=== PATIENT | female | born 1955 | race Hispanic/Latino ===

== ENCOUNTER 2016-08-25 14:26 | Emergency (ER) | payer OTHER ==
[2016-08-25 14:26] VITALS: BMI 27.3
[2016-08-25 14:45] VITALS: O2SAT 100
--- NOTE | 2016-08-25 15:26 | ED PDOC ---
HPI: Chest Pain Time Seen by Provider: 08/25/16 15:12 Chief Complaint (Nursing): Chest Pain Chief Complaint (Provider): Right sided chest pain x 4 days History Per: Patient History/Exam Limitations: no limitations Onset/Duration Of Symptoms: Days Current Symptoms Are (Timing): Still Present Severity: Moderate Pain Scale Rating Of: 5 Front/Back of Body, Lg (Color): 1 - Pain Additional Complaint(s): Pt reports 3-4 dyas of right sided chest pain. PT states yesterday she felt it radiated down the right arm. Pt states today she feels like it radiates towards the center of te chest. PT states yesterday she took zantac and today a baby aspirin but it did not help. No fever/chills. No cough. Pt states she feels it is work with movement and deep breathing. No calf pain. No recent travel. Pt states she does smoke. Past Medical History Reviewed: Historical Data, Nursing Documentation, Vital Signs Vital Signs: Last Vital Signs Temp 98.1 F 08/25/16 19:27 Pulse 72 08/25/16 19:27 Resp 16 08/25/16 19:27 BP 134/77 08/25/16 19:28 Pulse Ox 100 08/25/16 19:27 - Medical History PMH: Back Problems, Hypercholesterolemia, Hypothyroidism, Osteoporosis - Surgical History Surgical History: Tonsillectomy - Family History Family History: States: No Known Family Hx - Living Arrangements Living Arrangements: With Family - Social History Current smoker - smoking cessation education provided: No - Home Medications Home Medications: Ambulatory Orders Medication Instructions Recorded Acetaminophen with Codeine 1 tab PO Q6 PRN #20 tab 02/05/14 [Tylenol with Codeine No. 3 300 mg-30 mg] Tizanidine Hydrochloride 4 mg PO Q6 PRN #20 tab 02/05/14 [Tizanidine HCl] Atropine Sulf/Hyoscyamine [place] 1 tab PO Q8 #10 tab 08/11/14 [] Cyclobenzaprine [Flexeril] 5 mg PO Q8H #20 tab 08/25/16 - Allergies Allergies/Adverse Reactions: Allergies Allergy/AdvReac Type Severity Reaction Status Date / Time No Known Allergies Allergy Verified 08/25/16 14:43 Review of Systems ROS Statement: Except As Marked, All Systems Reviewed And Found Negative Physical Exam - Reviewed Nursing Documentation Reviewed: Yes Vital Signs Reviewed: Yes - Physical Exam Appears: Positive for: Well, Non-toxic, No Acute Distress Head Exam: Positive for: ATRAUMATIC, NORMAL INSPECTION, NORMOCEPHALIC Skin: Positive for: Normal Color, Warm, DRY Eye Exam: Positive for: Normal appearance ENT: Positive for: Normal ENT Inspection Neck: Positive for: Normal, Painless ROM Cardiovascular/Chest: Positive for: Regular Rate, Rhythm, Chest Non Tender ( Right side) Respiratory: Positive for: Normal Breath Sounds. Negative for: Accessory Muscle Use Gastrointestinal/Abdominal: Positive for: Normal Exam, Bowel Sounds, Soft Back: Positive for: Normal Inspection Extremity: Positive for: Normal ROM Neurologic/Psych: Positive for: Alert, Oriented - Laboratory Results Result Diagrams: 08/25/16 17:47 08/25/16 17:47 - ECG O2 Sat by Pulse Oximetry: 100 Pulse Ox Interpretation: Normal Disposition - Clinical Impression Clinical Impression: Non-cardiac chest pain - Patient ED Disposition Is Patient to be Admitted: No Counseled Patient/Family Regarding: Diagnosis, Need For Followup, Rx Given - Disposition Referrals: [facility] [Outside] Disposition: Routine/Home Disposition Time: 19:49 Condition: STABLE Prescriptions: Cyclobenzaprine [Flexeril] 5 mg PO Q8H #20 tab Instructions: Musculoskeletal Pain (ED)
[2016-08-25 17:53] LABS: HEMATOCRIT 38.1 % (34.0-47.0); MEAN CELL VOLUME 93.1 fl (81.0-99.0); MEAN CORPUSCULAR HEMOGLOBIN 30.8 pg (27.0-31.0); MEAN CORPUSCULAR HGB CONC 33.1 g/dL (33.0-37.0); RED CELL DISTRIBUTION WIDTH 14.3 % (11.5-14.5); WHITE BLOOD COUNT 7.2 K/uL (4.8-10.8)
[2016-08-25 18:06] LABS: ALB/GLOB RATIO 1.3 (1.0-2.1); ALKALINE PHOSPHATASE 57 U/L (38-126); ALT/SGPT 25 U/L (9-52); AST/SGOT 22 U/L (14-36); BILIRUBIN,TOTAL 0.3 mg/dl (0.2-1.3); BLOOD UREA NITROGEN 12 mg/dl (7-17); CALCIUM 9.1 mg/dL (8.4-10.2); CARBON DIOXIDE 27 mmol/L (22-30); CHLORIDE 102 mmol/L (98-107); GFR AFRICAN-AMERICAN > 60; GLUCOSE,RANDOM 88 mg/dL (65-105); POTASSIUM 4.1 MMOL/L (3.6-5.0); SODIUM 140 mmol/l (132-148); TOTAL PROTEIN 6.8 G/DL (6.3-8.2)
[2016-08-25] MEDS ORDERED: Naproxen 500 MG TAB PO STA (18:45)
[2016-08-25] MEDS ORDERED: Naproxen 500 MG TAB PO ONE (19:16)
[2016-08-25 19:27] VITALS: PULSE 72; RESP 16; TEMP 98.1
[2016-08-25 19:28] VITALS: BP 134/77
--- NOTE | 2016-08-26 09:57 | RAD ---
HISTORY: chest pain, right sided COMPARISON: 08/11/2014 FINDINGS: LUNGS: The lungs are clear. PLEURA: No significant pleural effusion identified, no pneumothorax apparent. CARDIOVASCULAR: Normal. OSSEOUS STRUCTURES: No significant abnormalities. VISUALIZED UPPER ABDOMEN: Normal. OTHER FINDINGS: None. IMPRESSION: No active pulmonary disease.
--- NOTE | 2016-08-26 20:12 | CARD ---
APPROVED REPORT EKG Measurement Heart [id number] <Conclusion> Normal sinus rhythm Normal ECG
== END 2016-08-25 20:05 | disposition home or self-care (01) ==
LOC: H.ER 14:26
DX: R07.9 Chest pain, unspecified (principal)

== ENCOUNTER 2017-01-29 08:09 | Day surgery (SDC) | payer OTHER ==
[2017-01-29] MEDS ORDERED: Lactated Ringer's 500 ML IV ONE (10:29)
[2017-01-29] MEDS ORDERED: Propofol 10 mg/ml Inj (20 ML) ONE (11:59)
[2017-01-29 12:18] VITALS: TEMP 98
[2017-01-29 12:48] VITALS: BP 127/69; PULSE 85; RESP 13; O2SAT 100
== END 2017-01-29 12:47 | disposition home or self-care (01) ==
LOC: H.ENDO 08:09
PROVIDERS: ATTEND Internal Medicine Gastroenterology
DX: Z12.11 Encounter for screening for malignant neoplasm of colon (principal); K64.0 First degree hemorrhoids
CPT/HCPCS: 45378; J2001; J2704; J7120

== ENCOUNTER 2017-06-05 10:59 | Emergency (ER) | payer OTHER ==
[2017-06-05 11:00] VITALS: BMI 27.3
[2017-06-05 11:21] VITALS: PULSE 84; RESP 16; TEMP 97.7; O2SAT 100
[2017-06-05 11:45] VITALS: BP 128/86
[2017-06-05 12:01] LABS: BASO # 0.1 K/uL (0.0-0.2); BASO % 1.1 % (0.0-2.0); EOS # 0.4 K/uL (0.0-0.7); EOS % 4.9 % (0.0-4.0); HEMOGLOBIN 12.8 g/dL (12.0-16.0); LYMPH % 24.9 % (20.0-40.0); MEAN CELL VOLUME 92.4 fl (81.0-99.0); MEAN CORPUSCULAR HEMOGLOBIN 30.3 pg (27.0-31.0); MEAN CORPUSCULAR HGB CONC 32.8 g/dL (33.0-37.0); MEAN PLATELET VOLUME 7.4 fl (7.2-11.7); MONO # 0.5 K/uL (0.0-0.8); NEUT # 5.2 K/uL (1.8-7.0); NEUT % 63.1 % (50.0-75.0); NRBC % 0.1 % (0.0-0.0); RBC 4.22 Mil/uL (3.80-5.20); RED CELL DISTRIBUTION WIDTH 13.9 % (11.5-14.5); WHITE BLOOD COUNT 8.2 K/uL (4.8-10.8)
[2017-06-05 12:11] LABS: BLOOD UREA NITROGEN 17 mg/dl (7-17); CALCIUM 8.9 mg/dL (8.4-10.2); GFR AFRICAN-AMERICAN > 60; GFR NON-AFRICAN AMERICAN > 60
--- NOTE | 2017-06-05 12:50 | ED PDOC ---
HPI: Chest Pain Time Seen by Provider: 06/05/17 11:20 Chief Complaint (Nursing): Chest Pain Additional Complaint(s): 62 year old female with a past medical history of chronic back and leg pain, osteoporosis, and thyroid disease who presents to the emergency department with a complaint of a substernal chest pain with occasional radiation to the left shoulder x1 week.States pain started after he reached for something behind the couch dropped by foster child. Reports he felt popping sensation and had pain since. Patient says pain is constant and worsens with movement and deep breathing. Denies shortness of breath, nausea, vomiting, sweats, fever, or chills. Past Medical History Reviewed: Historical Data, Nursing Documentation, Vital Signs Vital Signs: Last Vital Signs Temp 97.7 F 06/05/17 11:17 Pulse 84 06/05/17 11:17 Resp 16 06/05/17 11:17 BP 128/86 06/05/17 11:17 Pulse Ox 100 06/05/17 13:28 - Medical History PMH: Arthritis, Back Problems, Hypercholesterolemia, Hypothyroidism Denies: Chronic Kidney Disease - Surgical History Surgical History: Tonsillectomy - Family History Family History: States: No Known Family Hx - Home Medications Home Medications: Ambulatory Orders Medication Instructions Recorded Atorvastatin [Lipitor] 20 mg PO DAILY 01/29/17 Gabapentin [Neurontin] 600 mg PO DAILY 01/29/17 Hydrocodone/Acetaminophen [[place] 1 each PO DAILY 01/29/17 7.5-325 Tablet] Levothyroxine [Synthroid] 175 mcg PO DAILY 01/29/17 Paroxetine HCl [Paxil] 40 mg PO DAILY 01/29/17 - Allergies Allergies/Adverse Reactions: Allergies Allergy/AdvReac Type Severity Reaction Status Date / Time No Known Allergies Allergy Verified 08/25/16 14:43 Review of Systems ROS Statement: Except As Marked, All Systems Reviewed And Found Negative (As per HPI, otherwise negative) Constitutional: Negative for: Fever, Chills, Sweats Cardiovascular: Positive for: Chest Pain Respiratory: Negative for: Shortness of Breath Gastrointestinal: Negative for: Nausea, Vomiting Musculoskeletal: Positive for: Shoulder Pain (Left) Physical Exam - Reviewed Nursing Documentation Reviewed: Yes Vital Signs Reviewed: Yes - Physical Exam Appears: Positive for: Non-toxic, No Acute Distress Head Exam: Positive for: ATRAUMATIC, NORMAL INSPECTION, NORMOCEPHALIC Skin: Positive for: Normal Color, Warm, Dry Neck: Positive for: Normal, Supple Cardiovascular/Chest: Positive for: Regular Rate, Rhythm, Other (Palpable and reproducible tenderness to the lower substernal and left parasternal chest region). Negative for: Murmur Respiratory: Positive for: Normal Breath Sounds. Negative for: Accessory Muscle Use, Respiratory Distress Gastrointestinal/Abdominal: Positive for: Normal Exam, Soft. Negative for: Tenderness Back: Positive for: Normal Inspection Extremity: Positive for: Normal ROM. Negative for: Pedal Edema Neurologic/Psych: Positive for: Alert, Oriented (x3) - Laboratory Results Result Diagrams: 06/05/17 11:46 06/05/17 11:51 - ECG O2 Sat by Pulse Oximetry: 100 (RA) Pulse Ox Interpretation: Normal Medical Decision Making Medical Decision Making: Time: 1143 Initial Impression: Chest pain Initial Plan: EKG BMP Troponin I CBC w. diff Toradol 30 mg iV Chest x-ray Reevaluation Scribe~Attestation: Documented by Audra Bonilla, acting as a scribe for Marisela Reyes MD. Provider Scribe~Attestation: All medical record entries made by the Scribe were at my direction and personally dictated by me. I have reviewed the chart and agree that the record accurately reflects my personal performance of the history, physical exam, medical decision making, and the department course for this patient. I have also personally directed, reviewed, and agree with the discharge instructions and disposition. patient without distress. her symptoms and findings are compatible with musculoskeletal process. Disposition - Clinical Impression Clinical Impression: Chest wall pain - Patient ED Disposition Is Patient to be Admitted: No Doctor Will See Patient In The: Office Counseled Patient/Family Regarding: Diagnosis, Need For Followup - Disposition Disposition: Routine/Home Disposition Time: 13:37 Condition: STABLE Instructions: Musculoskeletal Pain (ED), Thoracic Pain (ED) Forms: [employer] (Faroese) - POA Present On Arrival: None
--- NOTE | 2017-06-05 14:46 | RAD ---
HISTORY: chest pain x 1week COMPARISON: 08/25/2016 TECHNIQUE: Chest PA and lateral FINDINGS: LUNGS: No active pulmonary disease. PLEURA: No significant pleural effusion identified. No pneumothorax apparent. CARDIOVASCULAR: Normal. OSSEOUS STRUCTURES: No significant abnormalities. VISUALIZED UPPER ABDOMEN: Normal. OTHER FINDINGS: None. IMPRESSION: No active disease. No significant interval change compared to the prior examination(s). Concordant results with the preliminary interpretation rendered by the emergency department physician procedure.
--- NOTE | 2017-06-06 13:14 | CARD ---
APPROVED REPORT EKG Measurement Heart [id number] DE [id number] [id number] <Conclusion> Normal sinus rhythm Normal ECG
== END 2017-06-05 14:10 | disposition home or self-care (01) ==
LOC: H.ER 10:59
DX: R07.89 Other chest pain (principal); G89.29 Other chronic pain; M81.0 Age-related osteoporosis without current pathological fracture; E03.9 Hypothyroidism, unspecified; E78.00 Pure hypercholesterolemia, unspecified
CPT/HCPCS: 71046; 80048; 84484; 85025; 93005; 96374; 99282; J1885

== ENCOUNTER 2018-10-14 14:16 | Emergency (ER) | payer OTHER ==
[2018-10-14 14:17] VITALS: BMI 27.3
[2018-10-14 14:43] VITALS: BP 123/72; PULSE 84; TEMP 98.3; O2SAT 96
--- NOTE | 2018-10-14 15:57 | CT ---
Date of service: 10/14/2018 PROCEDURE: CT HEAD WITHOUT CONTRAST. HISTORY: Trauma COMPARISON: Comparison made with prior CT scan of the brain 02/05/2014. Jessica gomez Dom good by TECHNIQUE: Axial computed tomography images were obtained through the head/brain without intravenous contrast. Radiation dose: Total exam DLP = 733.39 mGy-cm. This CT exam was performed using one or more of the following dose reduction techniques: Automated exposure control, adjustment of the mA and/or kV according to patient size, and/or use of iterative reconstruction technique. FINDINGS: HEMORRHAGE: No acute parenchymal, subarachnoid or extra-axial hemorrhage. BRAIN: There appears to be minor chronic periventricular white matter ischemic changes. VENTRICLES: Unremarkable. No hydrocephalus. CALVARIUM: Unremarkable. PARANASAL SINUSES: Unremarkable as visualized. No significant inflammatory changes. MASTOID AIR CELLS: Unremarkable as visualized. No inflammatory changes. OTHER FINDINGS: None. IMPRESSION: No acute intracranial hemorrhage. There appears to be minor chronic periventricular white matter ischemic changes.
--- NOTE | 2018-10-14 16:18 | CT ---
Date of service: 10/14/2018 PROCEDURE: CT Cervical Spine without contrast HISTORY: Trauma COMPARISON: None available. TECHNIQUE: Axial computed tomography images were obtained of the cervical spine without the use of intravenous contrast. Coronal and sagittal reformatted images were created and reviewed. Radiation dose: Total exam DLP = 277.71 mGy-cm. This CT exam was performed using one or more of the following dose reduction techniques: Automated exposure control, adjustment of the mA and/or kV according to patient size, and/or use of iterative reconstruction technique. FINDINGS: VERTEBRAE: No acute compression fractures nor retropulsed fragments. Vertebral bodies exhibit normal stature. Vertebral bodies and facets normally aligned. DISCS/SPINAL CANAL/NEURAL FORAMINA: At the C2-C3 level, there is adequate disc height. Small central and bilateral disc bulge mildly compresses the ventral surface of the thecal sac nearly reaching but not compressing the ventral surface of the cord. The overall central bony canal is quite capacious at this level. Exit foramina adequate. At the C3-C4 level, there is adequate disc height. Small central and bilateral disc bulge indents the ventral surface of the thecal sac though does not cause any significant canal compromise nor cord compression. Minimal degenerative squaring of the uncovertebral joints. Facets also prominent. Exit foramina adequate. At the C4-C5 level, there is adequate disc height. No disc herniation or significant disc bulge. The central canal appears adequate. Exit foramina are narrowed bilaterally due to overgrown uncovertebral joints and mildly hypertrophic facets. At the C5-C6 level, there is adequate disc height. No disc herniation or significant disc bulge. Central canal appears adequate. The uncovertebral joints are mildly hypertrophic right greater than left. Facets also slightly overgrown. The exit foramina are narrowed bilaterally right greater than left. At the C6-C7 level, there is adequate disc height. No disc herniation or significant disc bulge. Central canal and exit foramina adequate. PARASPINAL SOFT TISSUES: Paraspinal soft tissues unremarkable. OTHER FINDINGS: Note made of slight asymmetry of the vallecular felt to be secondary to encroaching lingual tonsils. Calcified atherosclerotic plaque noted at the left carotid bifurcation IMPRESSION: No acute fractures. Minor multilevel degenerative spondylosis most notably affecting the exit foramina and in particular the C5-C6 level more so than the remaining levels as detailed above.
--- NOTE | 2018-10-14 16:19 | ED PDOC ---
HPI: Head Injury Time Seen by Provider: 10/14/18 14:46 Chief Complaint (Nursing): Trauma Chief Complaint (Provider): Trauma History Per: Patient History/Exam Limitations: no limitations Onset/Duration Of Symptoms: Days (x9) Additional Complaint(s): 63 year old female presents to ED for injury sustained from fall x9 days. Patient states she was sleeping on couch when she rolled over and struck the back of her head on wooden floor. She reports no LOC but has had a headache and neck pain since the fall. Patient denies radiation of neck pain, numbness, tingling, weakness, nausea, vomiting. PMD: Negra Klein Past Medical History Reviewed: Historical Data, Nursing Documentation, Vital Signs Vital Signs: Last Vital Signs Temp 98.3 F 10/14/18 14:43 Pulse 84 10/14/18 14:43 Resp BP 123/72 10/14/18 14:43 Pulse Ox 96 10/14/18 14:43 Primary Care Provider: FAMILY PROVIDER,NO - Medical History PMH: Arthritis, Back Problems, Hypercholesterolemia, Hypothyroidism Denies: Chronic Kidney Disease - Surgical History Surgical History: Tonsillectomy - Family History Family History: States: No Known Family Hx - Social History Current smoker - smoking cessation education provided: Yes Alcohol: None Drugs: Denies - Home Medications Home Medications: Ambulatory Orders Medication Instructions Recorded Atorvastatin [Lipitor] 20 mg PO DAILY 01/29/17 Gabapentin [Neurontin] 600 mg PO DAILY 01/29/17 Hydrocodone/Acetaminophen [[place] 1 each PO DAILY 01/29/17 7.5-325 Tablet] Levothyroxine [Synthroid] 175 mcg PO DAILY 01/29/17 Paroxetine HCl [Paxil] 40 mg PO DAILY 01/29/17 - Allergies Allergies/Adverse Reactions: Allergies Allergy/AdvReac Type Severity Reaction Status Date / Time No Known Allergies Allergy Verified 08/25/16 14:43 Review of Systems ROS Statement: Except As Marked, All Systems Reviewed And Found Negative Gastrointestinal: Negative for: Nausea, Vomiting Musculoskeletal: Positive for: Neck Pain (denies radiation of neck pain) Neurological: Positive for: Headache. Negative for: Weakness, Numbness (and tingling), Other (no LOC) Physical Exam - Reviewed Nursing Documentation Reviewed: Yes Vital Signs Reviewed: Yes - Physical Exam Appears: Positive for: No Acute Distress Head Exam: Positive for: ATRAUMATIC, NORMAL INSPECTION, NORMOCEPHALIC Skin: Positive for: Normal Color, Warm, Dry Eye Exam: Positive for: EOMI, Normal appearance, PERRL ENT: Positive for: Normal ENT Inspection, Other (no hemotypanum bilaterally) Cardiovascular/Chest: Positive for: Regular Rate, Rhythm. Negative for: Murmur Respiratory: Positive for: Normal Breath Sounds. Negative for: Respiratory Distress Back: Positive for: Normal Inspection. Negative for: L CVA Tenderness, R CVA Tenderness, Vertebral Tenderness Neurological/Psych: Positive for: Alert, Oriented (x3), Gait (steady unassisted) - ECG O2 Sat by Pulse Oximetry: 96 (RA) Pulse Ox Interpretation: Normal Medical Decision Making Medical Decision Making: Time: 1647 Initial Impression: Initial Plan: 1704 CT head/c-spine w/o contrast: negative Informed of results. Advised to f/u with Dr. Mayo, neuro, for further evaluation but is to return to ED immediately if symptoms worsen. Scribe Attestation: Documented by Elan Wick, acting as a scribe for Suresh Graham PA-C Provider Scribe Attestation: All medical record entries made by the Scribe were at my direction and personally dictated by me. I have reviewed the chart and agree that the record accurately reflects my personal performance of the history, physical exam, medical decision making, and the department course for this patient. I have also personally directed, reviewed, and agree with the discharge instructions and disposition. Disposition - Clinical Impression Clinical Impression: Head injury - Patient ED Disposition Is Patient to be Admitted: No - Disposition Referrals: Tan Mayo MD [Medical Doctor] - Disposition: Routine/Home Disposition Time: 16:18 Condition: STABLE Additional Instructions: FOLLOW UP WITH NEUROLOGIST FOR FURTHER EVALUATION RETURN TO ED IMMEDIATELY IF SYMPTOMS WORSEN Instructions: Postconcussion Syndrome (DC) Forms: [employer] (Bulgarian)
[2018-10-14 17:36] VITALS: RESP 18
== END 2018-10-14 16:18 | disposition home or self-care (01) ==
LOC: H.ER 14:16
DX: S09.90XA Unspecified injury of head, initial encounter (principal); F17.200 Nicotine dependence, unspecified, uncomplicated; E03.9 Hypothyroidism, unspecified; E78.00 Pure hypercholesterolemia, unspecified